=== PATIENT | female | born 1940 | race Caucasian/White ===

== ENCOUNTER → 2021-04-20 | Outpatient (CLI) | payer MEDICARE, BC ==
[~2021-04-20] MED LIST: ALIR75PE3 SC; ASPI81TA26 PO; CALC-190 PO; CARB25TA9 PO; CARV6.25 PO; ESZO1TAB6 PO; FENT12DI8 TOP; HYDR-3713 PO; ISOS1TAB35 PO; LIDOCAINE 1% MDV 20ML VIAL As Ordered ONE; LINZ145C PO; LISI30TA4 PO; MELO15TA28 PO; OMEP1CAP73 PO; PARO5TAB PO; VITA-243 PO
[2021-04-20 14:58] VITALS: BP 160/74
[2021-04-21 08:15] LABS: SOURCE, BODY FLUID RT HIP; SYNOVIAL FLUID COLOR BROWN (COLORLESS)
[2021-04-21 08:16] LABS: CRYSTALS, BODY FLUID NONE SEEN (NONE SEEN); SOURCE, BODY FLUID CRYSTALS RIGHT HIP
== END ==
LOC: M IRPRO 12:56
PROVIDERS: ATTEND Orthopaedic Surgery
DX: T84.51XA Infection and inflammatory reaction due to internal right hip prosthesis, initial encounter (principal); Z96.641 Presence of right artificial hip joint